=== PATIENT | female | born 1990 | race Caucasian/White ===

== ENCOUNTER 2016-09-14 22:45 | Observation (INO) | payer OTHER ==
[~2016-09-14] VITALS: Ht 162.6 cm; Wt 89.1 kg
[2016-09-14] MEDS ORDERED: METHYLPREDNISOLONE 125 MG VIAL IV STA (23:14)
[2016-09-14] MEDS ORDERED: SODIUM CHLORIDE 0.9% 1000ML 1,000 ML IV STA (23:14)
[2016-09-14] MEDS ORDERED: FAMOTIDINE 20MG/102 ML D5W IV STA (23:14)
[2016-09-14] MEDS ORDERED: DiphenhydrAMINE HCL 50 MG/ML VIAL IV STA (23:14)
[2016-09-14] MEDS ORDERED: EPINEPHRINE ADULT AUTO-INJECT 0.3 MG SYR IM STA (23:14)
[2016-09-14 23:27] LABS: COMPLETE YES; EOS % 0.1 %; HEMATOCRIT 39.2 % (37-47); IG% 0.3 %; LYMPH % 12.8 %; LYMPH ABS # 1.59 K/uL (1.2-3.4); MEAN CELL VOLUME 74.7 fL (80-100); MEAN CORPUSCULAR HEMOGLOBIN 23.8 pg (25-34); MEAN CORPUSCULAR HGB CONC 31.9 g/dl (32-36); MEAN PLATELET VOLUME 10.1 fL (7.4-10.4); NEUT % 78.8 %; PLATELET COUNT 295 K/uL (130-400); RED BLOOD COUNT 5.25 M/uL (4.2-5.4); WHITE BLOOD COUNT 12.46 K/uL (4.8-10.8)
[2016-09-14 23:46] LABS: ALT/SGPT 28 U/L (12-78); BLOOD UREA NITROGEN 10 mg/dl (7-18); BUN/CREATININE RATIO 9.2 (10-20); CALCIUM 9.2 mg/dl (8.5-10.1); CARBON DIOXIDE 27 mmol/L (21-32); CHLORIDE 107 mmol/L (98-107); GLUCOSE 145 mg/dl (70-99); MAGNESIUM 2.2 mg/dl (1.8-2.4); POTASSIUM 3.3 mmol/L (3.5-5.1); SODIUM 142 mmol/L (136-145)
[2016-09-14 23:49] LABS: ALKALINE PHOSPHATASE 60 U/L (45-117); AST/SGOT 17 U/L (15-37)
--- NOTE | 2016-09-14 23:54 | EMERGENCY ROOM VISIT NOTE ---
History Report prepared by Shiva: Lina Lee Under the Supervision of: Dr. Radha Wood M.D. First contact with patient: 23:03 Chief Complaint: ALLERGIC REACTION Stated Complaint: ALLERGIC REACTION Nursing Triage Summary: reports facial swelling and tightness in throat , that has been intermittently happening since December. does not know any specific allergy History of Present Illness The patient is a 26 year old female who presents to the Emergency Room with complaints of an episode of an allergic reaction beginning ICE SELLER. The patient reports "a funny feeling in her throat" like she has something stuck in her throat. Her bottom lip is tingling. She has diffuse redness and itching of her upper body. She went to a concert in [facility] with her friends. When they were leaving the concert she developed some itching around her neck. She did not think too much about it and she fell asleep in the car. When she woke up her symptoms were worse so she came to the ED for evaluation. The patient is still feeling itchy. She rates her discomfort as a 2/10 in severity. She states that this has been occurring intermittent since December 2015. She will get hives and angioedema. She has followed up with numerous specialists and they are unsure what the cause of her reaction is. They think that it is either an allergy or an autoimmune issue. The only thing that is consistent about these episodes is that she is typically menstruating when they occur. She was admitted to the hospital in [place] (where she lives) three days ago for the same issue and she was there for 2 days. She was given Epi at that time and states that it helped. She has an appointment at [facility] next week. Source of History: patient Onset: ICE SELLER Position: other (global) Symptom Intensity: 2/10 Quality: other (itching) Timing: worsening Modifying Factors (Relieving): other (Epi) Review of Systems See HPI for pertinent positives & negatives. A total of 10 systems reviewed and were otherwise negative. Past Medical & Surgical Medical Problems: (1) Anaphylactic reaction Surgical Problems: (1) H/O tubal ligation Family History No pertinent history stated. Social History Smoking Status: Never Smoker Marital Status: in relationship Occupation Status: employed Current/Historical Medications Scheduled Fexofenadine Hcl (Catalina), 180 MG PO BID Montelukast Sodium (Singulair), 10 MG PO DAILY Ranitidine Hcl (Zantac), 150 MG PO BID Scheduled PRN Hydroxyzine Hcl (Atarax), 50 MG PO UD PRN for Itching Prednisone (Prednisone), 50 MG PO DAILY PRN for ALLERGIC REACTION Allergies Coded Allergies: Acetaminophen (Verified Allergy, Unknown, RASH, 09/15/16) Cefaclor (Verified Allergy, Unknown, RASH, 09/15/16) Oxycodone (Verified Allergy, Unknown, RASH, 09/15/16) Physical Exam Vital Signs Date Time Temp Pulse Resp B/P Pulse Ox O2 Delivery O2 Flow Rate FiO2 09/15/16 00:18 97 20 137/74 97 Room Air 09/14/16 23:05 101 09/14/16 22:49 36.9 129 20 129/84 100 Room Air Physical Exam Vital signs reviewed. General: Well-appearing 26 year old female, in no significant distress. HEENT: No scleral icterus, PERRLA, neck supple. Atraumatic. Posterior oropharynx is clear, no swelling noted to the tongue or lips. Cardiovascular: Regular rate and rhythm, no extra sounds. Pulmonary: Clear to auscultation bilaterally, normal work of breathing. Abdomen: Soft, nontender, nondistended, positive bowel sounds. Musculoskeletal: Atraumatic, no peripheral edema. Neurologic: Patient awake alert and oriented x 3, full strength in all 4 extremities. Cranial nerves 2 through 12 grossly intact. Skin: Erythema and swelling to the face, particularly periorbital bilaterally with urticaria on the neck, face, and upper chest. Medical Decision & Procedures Laboratory Results 09/14/16 23:15 Red Blood Count 5.25, Mean Corpuscular Volume 74.7, Mean Corpuscular Hemoglobin 23.8, Mean Corpuscular Hemoglobin Concent 31.9, Mean Platelet Volume 10.1, Neutrophils (%) (Auto) 78.8, Lymphocytes (%) (Auto) 12.8, Monocytes (%) (Auto) 8.0, Eosinophils (%) (Auto) 0.1, Basophils (%) (Auto) 0.0, Neutrophils # (Auto) 9.82, Lymphocytes # (Auto) 1.59, Monocytes # (Auto) 1.00, Eosinophils # (Auto) 0.01, Basophils # (Auto) 0.00 Test 3/25/17 23:15 White Blood Count 12.46 K/uL (4.8-10.8) Red Blood Count 5.25 M/uL (4.2-5.4) Hemoglobin 12.5 g/dL (12.0-16.0) Hematocrit 39.2 % (37-47) Mean Corpuscular Volume 74.7 fL (80-100) Mean Corpuscular Hemoglobin 23.8 pg (25-34) Mean Corpuscular Hemoglobin Concent 31.9 g/dl (32-36) Platelet Count 295 K/uL (130-400) Mean Platelet Volume 10.1 fL (7.4-10.4) Neutrophils (%) (Auto) 78.8 % Lymphocytes (%) (Auto) 12.8 % Monocytes (%) (Auto) 8.0 % Eosinophils (%) (Auto) 0.1 % Basophils (%) (Auto) 0.0 % Neutrophils # (Auto) 9.82 K/uL (1.4-6.5) Lymphocytes # (Auto) 1.59 K/uL (1.2-3.4) Monocytes # (Auto) 1.00 K/uL (0.11-0.59) Eosinophils # (Auto) 0.01 K/uL (0-0.5) Basophils # (Auto) 0.00 K/uL (0-0.2) RDW Standard Deviation 44.6 fL (36.4-46.3) RDW Coefficient of Variation 16.3 % (11.5-14.5) Immature Granulocyte % (Auto) 0.3 % Immature Granulocyte # (Auto) 0.04 K/uL (0.00-0.02) Total Bilirubin 0.3 mg/dl (0.2-1) Direct Bilirubin < 0.1 mg/dl (0-0.2) Aspartate Amino Transf (AST/SGOT) 17 U/L (15-37) Alanine Aminotransferase (ALT/SGPT) 28 U/L (12-78) Alkaline Phosphatase 60 U/L (45-117) Total Protein 7.4 gm/dl (6.4-8.2) Albumin 4.0 gm/dl (3.4-5.0) Laboratory results per my review. Medications Administered Medications (Trade) Dose Ordered Sig/Madhuri Route Start Time Stop Time Status Last Admin Dose Admin Methylprednisolone Sodium Succinate (Solu-Medrol IV) 125 mg NOW STAT IV 09/14/16 23:14 09/14/16 23:16 DC 09/14/16 23:29 125 MG Diphenhydramine HCl (Benadryl Inj) 50 mg NOW STAT IV 09/14/16 23:14 09/14/16 23:16 DC 09/14/16 23:29 50 MG Famotidine 20 mg 20 mg ONE STAT IV 09/14/16 23:14 09/14/16 23:16 DC 09/14/16 23:29 20 MG Sodium Chloride (Nss 1000ml) 1,000 ml @ 999 mls/hr Q1H1M STAT IV 09/14/16 23:14 09/15/16 00:14 DC 09/14/16 23:30 999 MLS/HR Epinephrine (Epipen) 0.3 mg NOW STAT IM 09/14/16 23:14 09/14/16 23:16 DC 09/14/16 23:29 0.3 MG Potassium Chloride (Klor-Con M10) 40 meq NOW STAT PO 09/14/16 23:56 09/14/16 23:57 DC 09/15/16 00:11 40 MEQ Racepinephrine (Raccemic Epinephrine 2.25% 0.5ML Neb) 0.5 ml NOW STAT INH 09/15/16 00:21 09/15/16 00:22 DC 09/15/16 00:33 0.5 ML Diphenhydramine HCl (Benadryl Inj) 25 mg NOW STAT IV 09/15/16 01:22 09/15/16 01:23 DC 09/15/16 03:41 25 MG ED Course 2303: Past medical records reviewed. The patient was evaluated in room A3. A complete history and physical examination was performed. 2314: Epinephrine 0.3 mg IM, NSS 1000 ml @ 999 mls/hr IV, Famotidine 20 mg IV, Benadryl 50 mg IV, Solu-Medrol 125 mg IV 2356: Klor-Con M10 40 meq PO 0016: I reassessed the patient at this time. She is feeling better but is still having some throat tightness. I discussed the results and treatment plan with the patient. I answered all pertaining questions that she had. She expressed understanding and verbalized agreement. 0021: Racepinephrine 0.5 ml INH 0119: I spoke with Dr. Chatman. We discussed the patient's results and treatment plan. The patient will be evaluated by the [facility] for further management. Medical Decision Differential diagnosis: Etiologies such as allergic reaction, anaphylaxis, urticaria, Hinds-Rajat syndrome, toxic epidermal necrolysis, erythema multiforme, cellulitis, as well as others were entertained. This patient was evaluated and appeared to be in no significant distress. IV access was obtained and laboratory work was drawn. The patient was medicated with IV Solu-Medrol, IV Pepcid and IV Benadryl. Patient was hydrated with normal saline solution. Patient was given IM epinephrine. On my reevaluation, the patient urticaria and swelling subsided substantially. She complained of continued throat tightness. The uvula is swollen. She was given an epi nebulizer treatment. The patient is staying approximately 30-40 minutes away from the hospital. She does have and EpiPen however did not use one prior to arrival. This time I feel is in the patient's best interest to be observed overnight for fear of a rebound reaction when the epi wears off. The patient has follow-up with allergy this week. She is aware of the plan and agrees. Consults Time Called: 21 Consulting Physician: Dr. Chatman Returned Call: [address] Chatman. We discussed the patient's results and treatment plan. The patient will be evaluated by the [facility] for further management. Impression Primary Impression: Allergic reaction Scribe Attestation The scribe's documentation has been prepared under my direction and personally reviewed by me in its entirety. I confirm that the note above accurately reflects all work, treatment, procedures, and medical decision making performed by me. Departure Information Dispostion Being Evaluated By Hospitalist Referrals No Doctor, Assigned (PCP) Patient Instructions My [facility] Problem Qualifiers Primary Impression: Allergic reaction Encounter type: initial encounter Qualified Codes: T78.40XA - Allergy, unspecified, initial encounter
[2016-09-14] MEDS ORDERED: POTASSIUM CHLORIDE 10 MEQ TABCR PO STA (23:56)
[2016-09-15] MEDS ORDERED: HYDR-3126 PO (00:17)
[2016-09-15] MEDS ORDERED: FEXO1TAB46 PO (00:17)
[2016-09-15] MEDS ORDERED: MONT1TAB3 PO (00:17)
[2016-09-15] MEDS ORDERED: RANI150T3 PO (00:17)
[2016-09-15] MEDS ORDERED: PRED50TA PO (00:18)
[2016-09-15] MEDS ORDERED: RACEPINEPHRINE 2.25% NEBU SOLN 0.5 ML VIAL INH STA (00:21)
[2016-09-15] MEDS ORDERED: DiphenhydrAMINE HCL 50 MG/ML VIAL IV STA (01:22)
[2016-09-15] MEDS ORDERED: DiphenhydrAMINE HCL 50 MG/ML VIAL IV PRN (02:00)
[2016-09-15] MEDS ORDERED: ONDANSETRON INJ 2 MG/ML 2 ML VIAL IV PRN (02:00)
[2016-09-15] MEDS ORDERED: IV FLUIDS COMPLETED PRN (02:45)
[2016-09-15 03:00] VITALS: BP 116/76; PULSE 88; TEMP 37; O2SAT 100; Ht 162.6 cm; Wt 89.1 kg
[2016-09-15] MEDS ORDERED: NSS + 20MEQ KCL 1000ML 1,000 ML IV SCH (03:15)
--- NOTE | 2016-09-15 05:25 | History and Physical ---
History & Physical Date & Time of Service: Sep 15, 2016 at 05:18 Chief Complaint: Anaphylactic Reaction Primary Care Physician: No Doctor, Assigned History of Present Illness Source: patient The patient is a 26-year-old female who presents emergency department with complaint of recurrent anaphylactic reaction occurred prior to arrival. She has had an extensive workup for this appointment in her hometown, without a cause determined yet. She has an appointment with a specialist at [facility] in 3 days. She reports that she's been back, showing [place], when she started developed hives and more concerning for this times that she felt like her throat was closing. She presents to the emergency department for treatment and assessment. Past Medical/Surgical History Surgical Problems: (1) H/O tubal ligation Status: Resolved Social History Smoking Status: Never Smoker Smokeless Tobacco Use: No Alcohol Use: occasionally Drug Use: none Marital Status: single Occupational Status: employed Multi-Drug Resistant Organisms History of MDRO: No Allergies Coded Allergies: Acetaminophen (Verified Allergy, Unknown, RASH, 09/15/16) Cefaclor (Verified Allergy, Unknown, RASH, 09/15/16) Oxycodone (Verified Allergy, Unknown, RASH, 09/15/16) Home Medications Scheduled Fexofenadine Hcl (Catalina), 180 MG PO BID Montelukast Sodium (Singulair), 10 MG PO DAILY Ranitidine Hcl (Zantac), 150 MG PO BID Scheduled PRN Hydroxyzine Hcl (Atarax), 50 MG PO UD PRN for Itching Prednisone (Prednisone), 50 MG PO DAILY PRN for ALLERGIC REACTION Review of Systems The patient denies lower extremity swelling, vision change, hearing change, fevers, chills, sweats, weight change, fatigue, nausea, vomiting, abdominal pain , pelvic pain, blood in urine or stool, dysuria, urinary frequency or urgency, memory loss, rash, abnormal bruising or bleeding, imbalance, focal or generalized weakness, numbness or tingling in arms or legs, arthralgias or myalgias, back or neck pain, night sweats. The review of systems is otherwise negative other than for that already noted above, and at least 10 systems have been reviewed. Physical Exam Vital Signs Date Time Temp Pulse Resp B/P Pulse Ox O2 Delivery O2 Flow Rate FiO2 09/15/16 03:00 37.0 88 18 116/76 100 Room Air 09/15/16 02:13 97 18 114/70 97 Room Air 09/15/16 00:18 97 20 137/74 97 Room Air 09/14/16 23:05 101 09/14/16 22:49 36.9 129 20 129/84 100 Room Air The patient is awake, well-developed and adequately nourished, alert and oriented 3, normocephalic and atraumatic, lying in bed and in no acute distress after emergency department treatment. HEENT--PERRL, EOMI, mucous membranes and oropharynx dry. Neck--supple, no JVD or bruits, thyroid normal, trachea midline, no adenopathy. Heart-- tachycardic and regular, no murmurs, rubs or gallops. Lungs--clear bilaterally with good air movement, no respiratory distress, no accessory muscle use. Abdomen--normal bowel sounds and soft, nontender and nondistended, no hernias or masses, no organomegaly. Extremities--no cyanosis, clubbing or edema. There are good distal pulses b/l. Dermatologic--normal skin turgor, normal color, warm and dry, no abnormal lymph nodes, no rash. Neurologic--cranial nerves II through XII grossly intact, motor and sensory examination normal. Rheumatologic--normal range of motion, nontender, muscles and joints. Psychiatric--normal affect. Diagnostics Laboratory Results Results Past 24 Hours Test 09/14/16 23:15 09/15/16 04:44 Range/Units White Blood Count 12.46 4.8-10.8 K/uL Red Blood Count 5.25 4.2-5.4 M/uL Hemoglobin 12.5 12.0-16.0 g/dL Hematocrit 39.2 37-47 % Mean Corpuscular Volume 74.7 80-100 fL Mean Corpuscular Hemoglobin 23.8 25-34 pg Mean Corpuscular Hemoglobin Concent 31.9 32-36 g/dl Platelet Count 295 130-400 K/uL Mean Platelet Volume 10.1 7.4-10.4 fL Neutrophils (%) (Auto) 78.8 % Lymphocytes (%) (Auto) 12.8 % Monocytes (%) (Auto) 8.0 % Eosinophils (%) (Auto) 0.1 % Basophils (%) (Auto) 0.0 % Neutrophils # (Auto) 9.82 1.4-6.5 K/uL Lymphocytes # (Auto) 1.59 1.2-3.4 K/uL Monocytes # (Auto) 1.00 0.11-0.59 K/uL Eosinophils # (Auto) 0.01 0-0.5 K/uL Basophils # (Auto) 0.00 0-0.2 K/uL RDW Standard Deviation 44.6 36.4-46.3 fL RDW Coefficient of Variation 16.3 11.5-14.5 % Immature Granulocyte % (Auto) 0.3 % Immature Granulocyte # (Auto) 0.04 0.00-0.02 K/uL Sodium Level 142 136-145 mmol/L Potassium Level 3.3 3.5-5.1 mmol/L Chloride Level 107 98-107 mmol/L Carbon Dioxide Level 27 21-32 mmol/L Anion Gap 8.0 3-11 mmol/L Blood Urea Nitrogen 10 7-18 mg/dl Creatinine 1.10 0.60-1.20 mg/dl Est Creatinine Clear Calc Drug Dose 86.3 ml/min Estimated GFR () 79.7 Estimated GFR (Non- 68.8 BUN/Creatinine Ratio 9.2 10-20 Random Glucose 145 70-99 mg/dl Calcium Level 9.2 8.5-10.1 mg/dl Magnesium Level 2.2 1.8-2.4 mg/dl Total Bilirubin 0.3 0.2-1 mg/dl Direct Bilirubin < 0.1 0-0.2 mg/dl Aspartate Amino Transf (AST/SGOT) 17 15-37 U/L Alanine Aminotransferase (ALT/SGPT) 28 12-78 U/L Alkaline Phosphatase 60 45-117 U/L Total Protein 7.4 6.4-8.2 gm/dl Albumin 4.0 3.4-5.0 gm/dl Impression Assessment and Plan Recurrent anaphylactic reaction--patient has had a significant workup performed in her hometown, has seen multiple physicians, and has a appointment scheduled with [facility] specialist in 3 days. Therefore, no additional workup will be performed tonight. She'll be admitted to the telemetry unit for monitoring. Place on Solu-Medrol 60 mg IV every 6 hours, Benadryl 50 mg IV every 4 hours when necessary, Pepcid 20 mg IV every 12 hours, Zofran 4 mg IV every 6 hours when necessary, and normal saline with potassium chloride 20 mEq at 125 ML's per hour. Level of Care Telemetry Advanced Directives Existing Advance Directive: No Existing Living Will: No Existing Power of Principal Clerk Typist: No Resuscitation Status FULL RESUSCITATION VTE Prophylaxis VTE Risk Assessment Done? Y/N: Yes Risk Level: Low Given or contraindicated: SCD's Social Service Consult None Apply
[2016-09-15] MEDS: METHYLPREDNISOLONE IV 60 MG in SYRINGE 0 ML IV SCH ×2 (05:37→13:09)
[2016-09-15 07:05] VITALS: BP 104/66; PULSE 64; TEMP 36.8; O2SAT 98
[2016-09-15 07:39] LABS: BUN/CREATININE RATIO 12.1 (10-20); CALCIUM 8.6 mg/dl (8.5-10.1); CREATININE 0.8 mg/dl (0.60-1.20); MAGNESIUM 2.3 mg/dl (1.8-2.4); POTASSIUM 4.4 mmol/L (3.5-5.1)
[2016-09-15 11:59] VITALS: BP 95/57; PULSE 66; TEMP 36.6; O2SAT 98
[2016-09-15] MEDS ORDERED: FAMOTIDINE IV INJ 20 MG in DEXTROSE 5% 100ML 100 ML IV SCH (12:00)
--- NOTE | 2016-09-15 14:13 | Discharge Instructions ---
Discharge Instructions Date of Service Sep 15, 2016. Admission Reason for Admission: Allergic Reaction Discharge Discharge Diagnosis / Problem: Allergic reaction, no anaphylaxis Discharge Goals Goal(s): Improve function, Diagnostic testing (follow up with appointment in [place] this week) Activity Recommendations Activity Limitations: resume your previous activity Lifting Limitations: none Exercise/Sports Limitations: as tolerated May Resume Sexual Activity: when tolerated Shower/Bathe: no limitations Driving or Machine Use: no limitations . 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 Current Hospital Diet Patient's current hospital diet: Regular Diet Discharge Diet Recommended Diet: Regular Diet Pending Studies Studies pending at discharge: no Laboratory Results Last Resulted CBC 09/14/16 23:15 Red Blood Count 5.25, Mean Corpuscular Volume 74.7, Mean Corpuscular Hemoglobin 23.8, Mean Corpuscular Hemoglobin Concent 31.9, Mean Platelet Volume 10.1, Neutrophils (%) (Auto) 78.8, Lymphocytes (%) (Auto) 12.8, Monocytes (%) (Auto) 8.0, Eosinophils (%) (Auto) 0.1, Basophils (%) (Auto) 0.0, Neutrophils # (Auto) 9.82, Lymphocytes # (Auto) 1.59, Monocytes # (Auto) 1.00, Eosinophils # (Auto) 0.01, Basophils # (Auto) 0.00 Last Resulted BMP 09/15/16 06:33 Medical Emergencies . Who to Call and When: Medical Emergencies: If at any time you feel your situation is an emergency, please call 911 immediately. . Non-Emergent Contact Non-Emergency issues call your: Primary Care Provider Call Non-Emergent contact if: you have any medication questions . . "Provider Documentation" section prepared by Billy Ross. VTE Core Measure Inpt VTE Proph given/why not?: SCD's [place] Drug Monitoring Program Search Results: no issues identified
[2016-09-15 14:14] VITALS: BP 95/57; PULSE 66; TEMP 36.6; O2SAT 98
--- NOTE | 2016-09-15 15:48 | Discharge Summary ---
Discharge Summary Date of Service Sep 15, 2016. Discharge Summary Admission Date: Sep 15, 2016 at 01:49 Discharge Date: Sep 15, 2016 Discharge Disposition: Home Principal Diagnosis: Allergic reaction Procedures: none Consultations: none Medication Reconciliation Continued Medications: Fexofenadine Hcl (Catalina) 180 Mg Tab 180 MG PO BID, TAB Hydroxyzine Hcl (Atarax) 50 Mg Tab 50 MG PO UD PRN for Itching, TAB Montelukast Sodium (Singulair) 10 Mg Tab 10 MG PO DAILY, TAB Prednisone (Prednisone) 50 Mg Tab 50 MG PO DAILY PRN for ALLERGIC REACTION, TAB Ranitidine Hcl (Zantac) 150 Mg Tab 150 MG PO BID, TAB Discharge Exam patient doing well this AM, just c/o being tired from all the anti-histamines. later in the day, feeling better, could swallow, no breathing issues. wanted to go home so she can follow up with [facility] this week. Review of Systems: Constitutional: No chills, No fatigue, No fever, No problem reported, No sweats, No weakness, No weight loss Eyes: No diplopia, No discharge, No eye pain, No problem reported, No redness, No worsening of vision ENT: + problem reported (tongue slightly swollen, no lip swelling), + trouble swallowing (minimal, like some food gets stuck), No dental problems, No hearing loss, No nasal symptoms, No sore throat, No tinnitus, No unusual epistaxis Respiratory: No cough, No dyspnea at rest, No dyspnea on exertion, No hemoptysis, No problem reported, No shortness of breath, No sputum, No wheezing Cardiovascular: No PND, No chest pain, No claudication, No edema, No orthopnea, No palpitations, No problem reported Abdomen: No GI bleeding, No constipation, No diarrhea, No nausea, No pain, No problem reported, No vomiting Musculoskeletal: No calf pain, No joint pain, No muscle pain, No problem reported, No swelling Genitourinary - Female: No dysuria, No hematuria, No urinary frequency, No urinary incontinence, No urinary retention, No urinary urgency Neurologic: No balance problems, No memory loss, No numbness/tingling, No paralysis, No problem reported, No vertigo, No weakness Psychiatric: No anhedonism, No anxiety, No depression symptoms, No insomnia , No problem reported, No substance abuse Endocrine: No excessive thirst, No excessive urination, No fatigue, No problem reported Hematologic / Lymphatic: No abnormal bleeding/bruising, No clotting problems , No night sweats, No problem reported, No swollen lymph nodes Integumentary: + rash (hives), No bleeding, No color change, No itch, No new /changing skin lesions, No problem reported Physical Exam: General Appearance: WD/WN, no apparent distress Eyes: normal inspection, EOMI, sclerae normal ENT: hearing grossly normal, TMs normal, pharynx normal (can clearly see posterior oropharynx) Neck: supple, no adenopathy, no JVD, trachea midline Respiratory/Chest: chest non-tender, lungs clear, normal breath sounds, no respiratory distress, no accessory muscle use Cardiovascular: regular rate, rhythm, no edema, no gallop, no JVD, no murmur , normal peripheral pulses Abdomen / GI: normal bowel sounds, non tender, soft, no organomegaly Extremities: normal inspection, no calf tenderness, normal capillary refill , no pedal edema, normal range of motion, pelvis stable 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 Therefore, no additional workup will be performed tonight. - Allergic reaction: no clear cause as outpatient work up, plan for [place] appointment with manager fine treated with Solu Medrol, Pepcid, anti-histamines while admitted no signs of anaphylaxis, breathing well, swallowing okay d/c back home Total Time Spent: Less than 30 minutes This includes examination of the patient, discharge planning, medication reconciliation, and communication with other providers. Discharge Instructions Please refer to the electronic Patient Visit Report (Discharge Instructions) for additional information. 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
[2016-09-15] MEDS ORDERED: MONTELUKAST SOD 10 MG TAB PO SCH (21:00)
== END 2016-09-15 15:15 | disposition home or self-care (01) ==
LOC: ENRESERVDT → ENRESERVTM → C.EDB 22:47 → C.MED 09-15 01:49
PROVIDERS: ADMIT Hospitalist; ATTEND Internal Medicine
DX: T78.40XA Allergy, unspecified, initial encounter (principal); X58.XXXA Exposure to other specified factors, initial encounter